=== PATIENT | male | born 1950 | race Caucasian/White ===

== ENCOUNTER 2020-01-09 17:07 | Emergency (ER) | payer BC ==
[~2020-01-09] VITALS: Ht 190.5 cm; Wt 113.6 kg
[2020-01-09 17:11] VITALS: BP 148/76; TEMP 98.1
[2020-01-09] MEDS ORDERED: AMOXICILLIN 8751 TAB PO (18:02)
[2020-01-09 18:38] VITALS: PULSE 99
== END 2020-01-09 18:27 | disposition home or self-care (01) ==
LOC: COL.ER 17:07
DX: L03.113 Cellulitis of right upper limb (principal)

== ENCOUNTER 2020-03-30 20:19 | Emergency (ER) | payer BC ==
[~2020-03-30] VITALS: Ht 190.5 cm; Wt 113.6 kg
[~2020-03-30 20:19] MED LIST: AMOXICILLIN 8751 TAB PO
[2020-03-30] MEDS ORDERED: LIDODERM 5% PATC1 EA TP (22:12)
[2020-03-30] MEDS ORDERED: FLEXERIL 1010 MG/TAB PO (22:12)
[2020-03-30 22:21] VITALS: BP 152/70; PULSE 80; TEMP 98
== END 2020-03-30 22:21 | disposition home or self-care (01) ==
LOC: COL.ER 20:19
DX: S16.1XXA Strain of muscle, fascia and tendon at neck level, initial encounter (principal); R25.2 Cramp and spasm; I48.91 Unspecified atrial fibrillation; Z98.890 Other specified postprocedural states

== ENCOUNTER 2021-03-05 08:30 | Emergency (ER) | payer OTHER ==
[~2021-03-05] VITALS: Ht 188 cm; Wt 113.6 kg
[~2021-03-05 08:30] MED LIST changes: +FLEXERIL 1010 MG/TAB PO; +LIDODERM 5% PATC1 EA TP
[2021-03-05 08:42] VITALS: TEMP 98.5
[2021-03-05 08:59] LABS: BASO # 0.1 (0.0-0.2); BASO % 0.8 % (0.0-2.0); EOS # 0.2 (0.0-0.7); EOS % 2.1 % (0-4.0); GRAN # 7.2 (1.4-6.5); GRAN % 74.9 % (42.2-75.2); HEMATOCRIT 44.9 % (42.0-52.0); HEMOGLOBIN 14.6 g/dl (13.5-18.0); LYMPH # 1.2 (1.2-3.4); LYMPH % 12.6 % (20.0-51.0); MEAN CELL VOLUME 92 fl (80.0-100.0); MEAN CORPUSCULAR HEMOGLOBIN 30 pg (27.0-31.0); MEAN CORPUSCULAR HGB CONC 33 g/dl (33.0-37.0); MEAN PLATELET VOLUME 9.7 fl (7.4-10.4); MONO # 0.9 (0.1-0.6); MONO % 9.3 % (1.7-9.3); PLATELET COUNT 252 K/mm3 (130-400); RED BLOOD COUNT 4.86 M/mm3 (4.20-5.60); REDCELL DISTRIBUTION WIDTH-CV 13.9 % (11.5-14.5)
[2021-03-05 09:10] LABS: INR 1.3 (0.8-3.0); PROTHROMBIN TIME 14.4 SECONDS (9.7-12.8)
[2021-03-05 09:12] LABS: PARTIAL THROMBOPLASTIN TIME 31.8 SECONDS (26.0-37.0)
[2021-03-05 09:25] LABS: ALANINE AMINOTRANSFERASE 27 U/L (4-49); ALKALINE PHOSPHATASE 109 U/L (50-136); ANION GAP 8 mmol/L (7-16); AST,SGOT 35 U/L (15-37); BILIRUBIN,TOTAL 1.4 mg/dL (0.0-1.0); BLOOD UREA NITROGEN 16 mg/dL (9-20); CALCIUM 9.6 mg/dL (8.4-10.2); CARBON DIOXIDE 23 mmol/L (22-30); CHLORIDE 107 mmol/L (98-107); CREATININE, serum 1.33 (0.66-1.25); GLUCOSE 111 mg/dL (74-106); POTASSIUM 4.2 mmol/L (3.4-5.0); SODIUM 138 mmol/L (137-145); TOTAL PROTEIN 7.3 gm/dL (6.4-8.2)
[2021-03-05 09:40] LABS: TROPONIN-I < 0.012 ng/mL (0.000-0.035)
[2021-03-05] MEDS ORDERED: TOPROL XL 25MG25 MG PO (10:57)
[2021-03-05] MEDS ORDERED: ELIQUIS 5MG PO (10:57)
[2021-03-05] MEDS ORDERED: KLOR-CON SPRIN10 MEQ PO (10:58)
[2021-03-05] MEDS ORDERED: LASIX 20MG TABL20 MG PO (10:58)
[2021-03-05 12:15] VITALS: BP 109/83; PULSE 82
[2021-06-28] MEDS ORDERED: K-DUR 10 MEQ T10 MEQ PO (19:33)
[2021-06-28] MEDS ORDERED: XARELTO20 MG PO (19:33)
[2021-06-28] MEDS ORDERED: LASIX 20MG TABL20 MG PO (19:33)
== END 2021-03-05 12:15 | disposition home or self-care (01) ==
LOC: COL.ER 08:30
PROVIDERS: Family Medicine
DX: I48.20 Chronic atrial fibrillation, unspecified (principal); Z87.891 Personal history of nicotine dependence
CPT/HCPCS: J1644; J2704; J7030

== ENCOUNTER → 2021-04-05 | Outpatient (CLI) | payer OTHER ==
[~2021-04-05] MED LIST changes: +ELIQUIS 5MG PO; +K-DUR 10 MEQ T10 MEQ PO; +KLOR-CON SPRIN10 MEQ PO; +LASIX 20MG TABL20 MG PO; +TOPROL XL 25MG25 MG PO; +XARELTO20 MG PO
== END ==
LOC: COL.LAB 07:33
DX: I48.91 Unspecified atrial fibrillation (principal)

== ENCOUNTER 2021-06-29 10:51 | Day surgery (SDC) | payer OTHER ==
[~2021-06-29] VITALS: Ht 190.7 cm; Wt 116.8 kg
[2021-06-29] VITALS (12 sets, daily range): BP systolic 95–128; BP diastolic 60–81; PULSE 47–63; TEMP 98.4
--- NOTE | 2021-06-29 10:05 | NUR ---
Pt returned from [facility] [employer] A[facility]. TR band in place to rt radial puncture site, clean and dry. C/o mild discomfort to AC area, area and forearm are soft to palpation. Pt is instructed to notify staff if discomfort worsens. Arm positioned for comfort on pillow. library monitor shows sinus rthythm. Pt denies desire to eat at this time. Water provided. Call light in reach. Son at bedside.
--- NOTE | 2021-06-29 10:45 | NUR ---
Discomfort pt had reported to rt AC improved. Area and forearm remains soft to palpation. See post cath flowsheet for rt femoral access documentation. Pt continues to deny needs.
--- NOTE | 2021-06-29 14:10 | NUR ---
DC instructions were reviewed with pt and son. Both express understanding. Air was removed from TR band in 2ml increments without issue. Site dressed with folded 2x2 and bandaid. Rt femoral puncture site dressing remains clean, dry and intact and area is soft to palpation after getting out of bed and changing clothes. INT DC'd with catheter intact. Pt is assisted out to son's car by wheelchair with all belongings.
== END 2021-06-29 14:20 | disposition home or self-care (01) ==
LOC: COL.CAR 10:51
DX: R94.39 Abnormal result of other cardiovascular function study (principal); I50.20 Unspecified systolic (congestive) heart failure; I48.91 Unspecified atrial fibrillation; F17.210 Nicotine dependence, cigarettes, uncomplicated; Z20.822 Contact with and (suspected) exposure to COVID-19; Z79.01 Long term (current) use of anticoagulants; Z79.899 Other long term (current) drug therapy
CPT/HCPCS: C1760; C1769; C1894; J1644; J2250; J3010; Q9967

== ENCOUNTER → 2021-06-29 | Day surgery (SDC) | payer OTHER ==
[~2021-06-29] VITALS: Ht 190.5 cm; Wt 116.8 kg
[2021-06-29 07:39] VITALS: BP 122/75; PULSE 63; TEMP 98.4
[2021-06-29 07:44] LABS: HEMATOCRIT 43.6 % (42.0-52.0); HEMOGLOBIN 14.7 g/dl (13.5-18.0); MEAN CELL VOLUME 92 fl (80.0-100.0); MEAN CORPUSCULAR HEMOGLOBIN 31 pg (27.0-31.0); MEAN CORPUSCULAR HGB CONC 34 g/dl (33.0-37.0); MEAN PLATELET VOLUME 9.5 fl (7.4-10.4); PLATELET COUNT 234 K/mm3 (130-400); RED BLOOD COUNT 4.75 M/mm3 (4.20-5.60); REDCELL DISTRIBUTION WIDTH-CV 14.9 % (11.5-14.5)
[2021-06-29 08:04] LABS: PROTHROMBIN TIME 11.4 SECONDS (9.7-12.8)
[2021-06-29 08:06] LABS: PARTIAL THROMBOPLASTIN TIME 30.8 SECONDS (26.0-37.0)
[2021-06-29 08:22] LABS: CALCIUM 9.4 mg/dL (8.4-10.2); CREATININE, serum 1.3 mg/dL (0.72-1.25); POTASSIUM 4.6 mmol/L (3.5-4.5)
[2021-06-29 09:20] VITALS: BP 128/81; PULSE 62
--- NOTE | 2021-06-29 09:25 | NUR ---
SEE MERGE DOCUMENTATION FOR MEDICATION ADMINISTRATION TIMES AND INTRA/POST PROCEDURE SEDATION ASSESSMENTS.
== END ==
LOC: COL.CAR 05-28 07:04
PROVIDERS: Internal Medicine Cardiovascular Disease
DX: R94.39 Abnormal result of other cardiovascular function study (principal); I48.91 Unspecified atrial fibrillation; I50.20 Unspecified systolic (congestive) heart failure; F17.200 Nicotine dependence, unspecified, uncomplicated; Z20.822 Contact with and (suspected) exposure to COVID-19; Z53.8 Procedure and treatment not carried out for other reasons
CPT/HCPCS: J1644; J2250; J3010; J7030; Q9967